=== PATIENT | male | born 1985 | race Caucasian/White ===

== ENCOUNTER 2018-06-01 14:17 | Day surgery (SDC) | payer OTHER ==
[~2018-06-01 14:17] MED LIST: CEFAZOLIN 1 GM INJ; GLYCOPYRROLATE 0.4 MG INJ; LIDOCAINE 2% (SDV) 5 ML INJ; NEOSTIGMINE 3 MG/3 ML SYRINGE; ROCURONIUM 50 MG INJ
[2018-06-01] MEDS ORDERED: CEFAZOLIN 2 GM/50 ML (PMX) 50 ML IVPB (15:00)
[2018-06-01] MEDS ORDERED: LACTATED RINGER'S 1,000 ML IV* (15:00)
[2018-06-01] MEDS ORDERED: PROPOFOL 20 ML (16:26)
[2018-06-01] MEDS ORDERED: ROCURONIUM 50 MG INJ (16:26)
[2018-06-01] MEDS ORDERED: DEXAMETHASONE 4 MG/ML 1 ML INJ (17:52)
[2018-06-01] MEDS ORDERED: KETOROLAC 30 MG INJ (17:52)
[2018-06-01] MEDS ORDERED: ONDANSETRON 4 MG INJ (17:53)
[2018-06-01] MEDS ORDERED: HYDROmorphONE 1 MG/5 ML IV SYRINGE IV ×2 (18:22→18:30)
[2018-06-01] MEDS ORDERED: LABETALOL HCL 20MG INJ IV (18:30)
[2018-06-01] MEDS ORDERED: FENTAnyl 50 MCG/ML VIAL IV ×3 (18:30)
[2018-06-01] MEDS ORDERED: OXYCODONE/ACETAMINOPHEN (5/325) TAB PO ×2 (18:30)
[2018-06-01] MEDS ORDERED: KETOROLAC 30 MG INJ IV (18:30)
[2018-06-01] MEDS ORDERED: METOCLOPRAMIDE 10 MG INJ IV (18:30)
[2018-06-01] MEDS ORDERED: hydrALAzine 20 MG INJ IV (18:30)
[2018-06-01] MEDS ORDERED: DIPHENHYDRAMINE 50 MG INJ IV (18:30)
[2018-06-01] MEDS ORDERED: ONDANSETRON 4 MG INJ IV (18:30)
[2018-06-01] MEDS ORDERED: MEPERIDINE 25 MG INJ IV (18:30)
[2018-06-01] MEDS ORDERED: MIDAZOLAM 1 MG/ML 2 ML INJ IV (18:30)
[2018-06-01] MEDS ORDERED: ALBUTEROL 0.083% (NEB) 2.5 MG/3 ML AMP HHN (18:30)
[2018-06-01] MEDS: HYDROmorphONE 1 MG/5 ML IV SYRINGE IV ×2 (18:38→18:51)
== END 2018-06-01 20:11 | disposition home or self-care (01) ==
LOC: SDS 14:17
DX: S52.302A Unspecified fracture of shaft of left radius, initial encounter for closed fracture (principal); S63.015A Dislocation of distal radioulnar joint of left wrist, initial encounter; G56.02 Carpal tunnel syndrome, left upper limb; V49.9XXA Car occupant (driver) (passenger) injured in unspecified traffic accident, initial encounter
CPT/HCPCS: 25525